=== PATIENT | male | born 1955 | race Caucasian/White ===

== ENCOUNTER 2023-09-27 08:24 | Day surgery (SDC) | payer OTHER, MEDICARE ==
[2023-09-27] VITALS (600 sets, daily range): BP systolic 147–184; BP diastolic 63–91; PULSE 44–86; TEMP 97.7–98.4; O2SAT 93–100
[~2023-09-27] VITALS: Ht 180.3 cm; Wt 89.3 kg
[~2023-09-27 08:24] MED LIST: IODINE SUPPLEMENT SL; MAGNESIUM200 MG PO; MOTRIN 200200 MG/TAB PO; TENORMIN 5050 MG/TAB PO; VITAMIN B COMPL1 T16 PO
[2023-09-27] MEDS ORDERED: NORVASC 10MG10 MG PO (09:35)
[2023-09-27] MEDS ORDERED: IMDUR 60MG60 MG/TAB PO (09:35)
[2023-09-27 09:36] LABS: HEMATOCRIT 44.5 % (42.0-52.0); HEMOGLOBIN 14.7 g/dl (13.5-18.0); MEAN CELL VOLUME 95 fl (80.0-100.0); MEAN CORPUSCULAR HEMOGLOBIN 31 pg (27-31); MEAN CORPUSCULAR HGB CONC 33 g/dl (33.0-37.0); MEAN PLATELET VOLUME 10.5 fl (7.4-10.4); PLATELET COUNT 196 K/mm3 (130-400); RED BLOOD COUNT 4.68 M/mm3 (4.20-5.60); REDCELL DISTRIBUTION WIDTH-CV 12.4 % (11.5-14.5)
[2023-09-27] MEDS ORDERED: COREG 25MG25 MG/TAB PO (09:36)
[2023-09-27] MEDS ORDERED: PLAVIX 75MG TAB75 MG PO (09:36)
[2023-09-27] MEDS ORDERED: ASPIRIN 81M81 MG/TA2 PO (09:37)
[2023-09-27] MEDS ORDERED: TYLENOL 8 HR PO (09:37)
[2023-09-27] MEDS ORDERED: NATURAL POTASS595 MG (09:38)
[2023-09-27] MEDS ORDERED: NITROSTAT0.4 MG/TAB SL (09:39)
[2023-09-27] MEDS ORDERED: MASON NATURAL1200 MG PO (09:39)
[2023-09-27 09:47] LABS: PROTHROMBIN TIME 11.4 SECONDS (9.7-12.8)
[2023-09-27 09:50] LABS: PARTIAL THROMBOPLASTIN TIME 29.8 SECONDS (26.0-37.0)
[2023-09-27 09:53] LABS: CALCIUM 9.1 mg/dL (8.4-10.2); CREATININE, serum 0.99 mg/dL (0.72-1.25); POTASSIUM 3.9 mmol/L (3.5-4.5)
--- NOTE | 2023-09-27 11:30 | NUR ---
Please see Merge documentation for record of interventions, vitals and medications given during left heart cath.
--- NOTE | 2023-09-27 13:47 | NUR ---
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 Site reviewed, intact. Will remain with patient until Chelsea MONTES transfers current ICU patient upstairs and is able to assume care. First set of vitals at 1335.
--- NOTE | 2023-09-27 13:49 | NUR ---
Access site & pulses intact. Patient given coffee per request. Patient remains supine. Educated on groin management/precautions.
--- NOTE | 2023-09-27 14:04 | NUR ---
Small amount of oozing noted at site, pressure held.
--- NOTE | 2023-09-27 14:09 | NUR ---
Report given [facility] ICU RNs. Lines/dips reviewed. Some capillary bleeding noted, manual pressure held for 10 minutes, bleeding stopped, fresh dressing applied. Lance deny questions/concerns at this times.
--- NOTE | 2023-09-27 15:22 | NUR ---
EKG DONE. LESLIE SAYS "ACUTE MD". RN NOTIFIED WILL CALL DR COLLINS
[2023-09-28] VITALS (292 sets, daily range): BP systolic 139–159; BP diastolic 70–80; PULSE 50–61; TEMP 98–98.8; O2SAT 91–99
--- NOTE | 2023-09-28 02:23 | NUR ---
0100: GOOD REPONSE TO COREG 25MG PO, PT,S BP COMING DOWN NICELY, SYST BP IN THE 150S, HR= 57.
[2023-09-28 05:24] LABS: BASO % 0.4 % (0.0-2.0); EOS # 0.2 K/mm3 (0.0-0.7); EOS % 2.6 % (0.0-4.0); GRAN # 5.3 K/mm3 (1.4-6.5); GRAN % 69.2 % (42.2-75.2); HEMATOCRIT 40.4 % (42.0-52.0); HEMOGLOBIN 13.6 g/dl (13.5-18.0); LYMPH # 1.5 K/mm3 (1.2-3.4); LYMPH % 19.2 % (20.0-51.0); MEAN CELL VOLUME 93 fl (80.0-100.0); MEAN CORPUSCULAR HEMOGLOBIN 31 pg (27-31); MEAN CORPUSCULAR HGB CONC 34 g/dl (33.0-37.0); MEAN PLATELET VOLUME 10.8 fl (7.4-10.4); MONO # 0.7 K/mm3 (0.1-0.6); MONO % 8.5 % (1.7-9.3); PLATELET COUNT 186 K/mm3 (130-400); RED BLOOD COUNT 4.35 M/mm3 (4.20-5.60); REDCELL DISTRIBUTION WIDTH-CV 12.1 % (11.5-14.5)
[2023-09-28 05:33] LABS: CALCIUM 8.7 mg/dL (8.4-10.2); CREATININE, serum 0.89 mg/dL (0.72-1.25); POTASSIUM 3.6 mmol/L (3.5-4.5)
--- NOTE | 2023-09-28 09:28 | NUR ---
0700 BEDSIDE REPORT RECEIVED FROM JYOTI CANDELARIA. PT RESTING IN BED, VSS. FLUIDS AND NITRO INFUSING TO PRIPHERAL IV IN L AC. PT DENIES CHEST PAIN. SURGICAL SITE TO R GROIN COVERED W/ GAUZE AND TEGADERM. SMALL AMOUNT OF DRAINAGE NOTED TO GAUZE, TISSUE AROUND SITE SOFT BUT SMALL AMOUNT OF BRUISING NOTED. PT ALERT AND ORIENTED, CALL LIGHT IN REACH. 0800 NITRO DRIP AND IVF DISCONTINUED ORDERED. 0900 PT REFUSED FLU SHOT.
[2023-09-28] MEDS ORDERED: BRILINTA90 MG PO (09:51)
[2023-09-28] MEDS ORDERED: COZAAR 50MG50 MG/TAB PO (09:52)
--- NOTE | 2023-09-28 11:07 | NUR ---
CHIEF II DISPATCHER reviewed pt's clinical record and noted he was admitted to the ICU on 09/27/2023 for a left heart cath. CHIEF II DISPATCHER met with pt @ the bedside before rounds this morning to complete initial intake. 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 He has another son who is in the [employer]. Pt reports his daughter, Renetta Stewart, ph# [phone], lives nearby and is available if he needs assistance. Pt is independent in his ADL's/IADL's and ambulates without assistive devices. He has no h/o falls. Pt reports his primary care provider at the [facility] is Dr. Nettles, ph# [phone] and he fills his prescriptions at the [facility]. He has no HCPOA and does not want to execute at this time. Pt is expecting to be discharge home later today and he states he does not need outpt services. He plans to call a friend to transport him home. No other concerns noted.
--- NOTE | 2023-09-28 14:02 | NUR ---
IV TO L AC DISCONTINUED. PT GIVEN D/C PACKET W/ FOLLOW UP APPT INFO, PRINTOUTS ON NEW MEDICATIONS, AND POST CATH CARE INSTRUCTIONS. PT VERBALIZED UNDERSTANDING OF D/C INSTRUCTIONS. DISCHARGED TO HOME AT 1135.
== END 2023-09-28 11:35 | disposition home or self-care (01) ==
LOC: COL.CAR 08:24 → ICU 14:00 → COL.CAR 09-28 11:35
PROVIDERS: Internal Medicine Cardiovascular Disease
DX: I25.10 Atherosclerotic heart disease of native coronary artery without angina pectoris (principal); I10 Essential (primary) hypertension; Z95.1 Presence of aortocoronary bypass graft; Z28.310 Unvaccinated for COVID-19
CPT/HCPCS: OP; C1725; C1760; C1769; C1874; C1887; C1894; C9600; J0583; J1644; J2250; J2305; Q9967